=== PATIENT | male | born 1995 | race Hispanic/Latino ===

== ENCOUNTER 2020-05-31 05:00 | Emergency (ER) | payer BC, OTHER, SELFPAY ==
[2020-05-31] MEDS ORDERED: LIDOCAINE HCL-MPF 1% 2ML VIAL ONE (05:24)
[2020-05-31] MEDS ORDERED: CEFAZOLIN SODIUM 1 GM VIAL ONE (05:24)
== END 2020-05-31 05:56 | disposition home or self-care (01) ==
LOC: EDH 05:00
DX: T81.30XA Disruption of wound, unspecified, initial encounter (principal); S61.215A Laceration without foreign body of left ring finger without damage to nail, initial encounter; W26.0XXA Contact with knife, initial encounter; Y93.89 Activity, other specified; Y92.89 Other specified places as the place of occurrence of the external cause; Y99.8 Other external cause status
CPT/HCPCS: 29130; 96372; 99284; J0690; J3490